=== PATIENT | female | born 1965 | race Caucasian/White ===

== ENCOUNTER 2018-12-16 09:47 | Outpatient (CLI) | payer OTHER ==
--- NOTE | 2018-12-16 14:31 | ULT ---
ULTRASOUND ABDOMEN: HISTORY: Cirrhosis of the liver. FINDINGS: The liver demonstrates coarse echogenicity without focal mass or intrahepatic ductal dilatation. The re is free fluid consistent with ascites. The spleen is enlarged measuring 17.6 cm. There is thicke abbie of the wall of the gallbladder without shadowing gallstones. The visualized portion of the comm on duct measured 6 mm. The kidneys and visualized portions of the pancreas are unremarkable. The vi sualized portions of the aorta and IVC are unremarkable. IMPRESSION: 1. Findings suspicious for liver cirrhosis. 2. Ascites. 3. Splenomegaly. 4. Gallbladder wall thickening without cholelithiasis. POS: OFF
== END 2018-12-16 09:48 | disposition home or self-care (01) ==
LOC: BICULT 09:47
PROVIDERS: ATTEND Family Medicine
DX: K74.60 Unspecified cirrhosis of liver (principal); N83.209 Unspecified ovarian cyst, unspecified side; R16.1 Splenomegaly, not elsewhere classified; R18.8 Other ascites; K82.8 Other specified diseases of gallbladder
CPT/HCPCS: 76700

== ENCOUNTER 2019-01-01 09:25 | Outpatient (CLI) | payer OTHER ==
--- NOTE | 2019-01-02 14:26 | MMO ---
Bilateral MAMMO Bilat Screen [facility]. CLINICAL HISTORY: Patient is 53 years old and is seen for screening. The patient has no family history of breast cancer. The patient has no personal history of cancer. VIEWS: The views performed were: bilateral craniocaudal and bilateral mediolateral oblique. FILMS COMPARED: The present examination has been compared to prior imaging studies performed at [facility] on 12/16/2012, 11/10/2014, 09/06/2015 and 10/23/2016. This study has been interpreted with the assistance of computer-aided detection. MAMMOGRAM FINDINGS: The breasts are heterogeneously dense, which could obscure a lesion on mammography. There are no suspicious masses, suspicious calcifications, or new areas of architectural distortion. IMPRESSION: THERE IS NO MAMMOGRAPHIC EVIDENCE OF MALIGNANCY. A ROUTINE FOLLOW-UP MAMMOGRAM IN 1 YEAR IS RECOMMENDED. ACR BI-RADS Category 1 - Negative MAMMOGRAPHY NOTE: 1. A negative mammogram report should not delay a biopsy if a dominant of clinically suspicious mass is present. 2. Approximately 10% to 15% of breast cancers are not detected by mammography. 3. Adenosis and dense breasts may obscure an underlying neoplasm. Reported by: NANCI SHAIKH MD Electonically Signed: [id number]
== END 2019-01-01 09:26 | disposition home or self-care (01) ==
LOC: SCSMAMMO 09:25
PROVIDERS: ATTEND Family Medicine
DX: Z12.31 Encounter for screening mammogram for malignant neoplasm of breast (principal)
CPT/HCPCS: 77067